=== PATIENT | male | born 1990 | race Caucasian/White ===

== ENCOUNTER 2019-07-06 11:31 | Emergency (ER) | payer BC ==
--- NOTE | 2019-07-06 11:44 | EDM.PDOC ---
ED HPI GENERAL MEDICAL PROBLEM - General Chief Complaint: Abdominal Pain Stated Complaint: ABD VILLAFANA UPPER Time Seen by Provider: 07/06/19 11:33 Source of Information: Reports: Patient History Limitations: Reports: No Limitations - History of Present Illness INITIAL COMMENTS - FREE TEXT/NARRATIVE: History of present illness: []Patient's had 3 weeks of right upper quadrant abdominal pain. He states he has family. History of gallbladder disease and is no longer have an appendix., He denies any fevers, Chills, vomiting or diarrhea. Review of systems: As per history of present illness and below otherwise all systems reviewed and negative. Past medical history: As per history of present illness and as reviewed below otherwise noncontributory. Surgical history: As per history of present illness and as reviewed below otherwise noncontributory. Social history: No reported history of drug or alcohol abuse. Family history: As per history of present illness and as reviewed below otherwise noncontributory. Physical exam: General: Well developed, well nourished in NAD HEENT: Atraumatic, normocephalic, pupils reactive, negative for conjunctival pallor or scleral icterus, mucous membranes moist, throat clear, neck supple, nontender, trachea midline. Lungs: Clear to auscultation, breath sounds equal bilaterally, chest nontender. Heart: S1S2, regular, negative for clicks, rubs, or JVD. Abdomen: NABS, Soft, nondistended, mild ruq tenderness, no rebound or guarding. Negative for masses or hepatosplenomegaly. Negative for costovertebral tenderness. Pelvis: Stable nontender. Genitourinary: Deferred. Rectal: Deferred. Extremities: Atraumatic, negative for cords or calf pain. Neurovascular unremarkable. Neuro: Awake, alert, oriented. Cranial nerves II through XII unremarkable. Cerebellum unremarkable. Motor and sensory unremarkable throughout. Exam nonfocal. Skin:warm and dry Diagnostics: CBC, chemistry, lipase, abdominal ultrasound Therapeutics: Declined pain meds ED Course: Stable Impression: Cholelithiasis without cholecystitis Prescriptions: Hyoscyamine Plan: Follow-up with general surgery as needed Definitive disposition and diagnosis as appropriate pending reevaluation and review of above. right upper quadrant Pain Score (Numeric/FACES): 7 - Related Data Allergies Allergy/AdvReac Type Severity Reaction Status Date / Time No Known Allergies Allergy Verified 07/06/19 11:46 Home Meds: Home Meds Hyoscyamine [Hyomax-SL] 0.125 mg SL Q4H PRN #20 tab.sl 07/06/19 [Rx] ED ROS GENERAL - Review of Systems Review Of Systems: See Below ED EXAM, GI/ABD - Physical Exam Exam: See Below Course - Vital Signs Last Recorded V/S: Last Vital Signs Temp 97.6 F 07/06/19 11:46 Pulse 78 07/06/19 11:46 Resp 18 07/06/19 11:46 BP 140/90 07/06/19 11:46 Pulse Ox 98 07/06/19 11:46 - Orders/Labs/Meds Orders: Active Orders 24 hr Category Date Time Status Sodium Chloride 0.9% [Saline Flush] Med 07/06/19 11:49 Active 10 ml FLUSH ASDIRECTED PRN Sodium Chloride 0.9% [Saline Flush] Med 07/06/19 11:49 Active 2.5 ml FLUSH ASDIRECTED PRN Saline Lock Insert [OM.PC] Stat Oth 07/06/19 11:49 Ordered Medication Orders Sodium Chloride (Saline Flush) 10 ml FLUSH ASDIRECTED PRN PRN Reason: Keep Vein Open Sodium Chloride (Saline Flush) 2.5 ml FLUSH ASDIRECTED PRN PRN Reason: Keep Vein Open Labs: Laboratory Tests 07/06/19 07/06/19 07/06/19 Range/Units 12:00 12:00 13:12 WBC 10.20 (4.0-11.0) K/uL RBC 5.20 (4.50-5.90) M/uL Hgb 16.4 (13.0-17.0) g/dL Hct 46.1 (38.0-50.0) % MCV 88.7 (80.0-98.0) fL MCH 31.5 (27.0-32.0) pg MCHC 35.6 (31.0-37.0) g/dL RDW Std Deviation 38.1 (28.0-62.0) fl RDW Coeff of Adelita 12 (11.0-15.0) % Plt Count 224 (150-400) K/uL MPV 11.00 (7.40-12.00) fL Neut % (Auto) 72.3 (48.0-80.0) % Lymph % (Auto) 18.1 (16.0-40.0) % Thurston % (Auto) 6.7 (0.0-15.0) % Eos % (Auto) 2.7 (0.0-7.0) % Baso % (Auto) 0.2 (0.0-1.5) % Neut # (Auto) 7.4 H (1.4-5.7) K/uL Lymph # (Auto) 1.9 (0.6-2.4) K/uL Thurston # (Auto) 0.7 (0.0-0.8) K/uL Eos # (Auto) 0.3 (0.0-0.7) K/uL Baso # (Auto) 0.0 (0.0-0.1) K/uL Nucleated RBC % 0.0 /100WBC Nucleated RBCs # 0 K/uL Sodium 143 (136-148) mmol/L Potassium 3.9 (3.5-5.1) mmol/L Chloride 106 (98-107) mmol/L Carbon Dioxide 30.9 (21.0-32.0) mmol/L BUN 16 (7.0-18.0) mg/dL Creatinine 1.0 (0.8-1.3) mg/dL Est Cr Clr Drug Dosing TNP Estimated GFR (MDRD) > 60.0 ml/min Glucose 96 (74-106) mg/dL Calcium 8.9 (8.5-10.1) mg/dL Total Bilirubin 1.1 H (0.2-1.0) mg/dL AST 17 (15-37) IU/L ALT 36 (14-63) IU/L Alkaline Phosphatase 52 (46-116) U/L Total Protein 7.6 (6.4-8.2) g/dL Albumin 4.3 (3.4-5.0) g/dL Globulin 3.3 (2.6-4.0) g/dL Albumin/Globulin Ratio 1.3 (0.9-1.6) Lipase 92 (73-393) U/L Urine Color YELLOW Urine Appearance CLEAR Urine pH 6.5 (5.0-8.0) Ur Specific [place] 1.015 (1.001-1.035) Urine Protein NEGATIVE (NEGATIVE) mg/dL Urine Glucose (UA) NEGATIVE (NEGATIVE) mg/dL Urine Ketones NEGATIVE (NEGATIVE) mg/dL Urine Occult Blood NEGATIVE (NEGATIVE) Urine Nitrite NEGATIVE (NEGATIVE) Urine Bilirubin NEGATIVE (NEGATIVE) Urine Urobilinogen 0.2 (<2.0) EU/dL Ur Leukocyte Esterase NEGATIVE (NEGATIVE) Urine RBC NONE SEEN (0-2/HPF) Urine WBC 0-1 (0-5/HPF) Ur Epithelial Cells NOT SEEN (NONE-FEW) Urine Bacteria RARE (NEGATIVE) Urine Mucus FEW (NONE-MOD) Meds: Medications Generic Name Dose Route Start Last Admin Trade Name Freq PRN Reason Stop Dose Admin Sodium Chloride 10 ml 07/06/19 11:49 Saline Flush FLUSH ASDIRECTED PRN Keep Vein Open Sodium Chloride 2.5 ml 07/06/19 11:49 Saline Flush FLUSH ASDIRECTED PRN Keep Vein Open Discontinued Medications Generic Name Dose Route Start Last Admin Trade Name Freq PRN Reason Stop Dose Admin Sodium Chloride 1,000 mls @ 999 mls/hr 07/06/19 11:50 07/06/19 12:06 Normal Saline IV 07/06/19 12:50 999 mls/hr .Bolus ONE Administration Departure - Departure Time of Disposition: 14:56 Disposition: Home, Self-Care 01 Condition: Good Clinical Impression: Cholelithiasis Qualifiers: Cholelithiasis location: gallbladder Cholecystitis presence: without cholecystitis Biliary obstruction: without biliary obstruction Qualified Code(s) : K80.20 - Calculus of gallbladder without cholecystitis without obstruction - Discharge Information *PRESCRIPTION DRUG MONITORING PROGRAM REVIEWED*: Not Applicable *COPY OF PRESCRIPTION DRUG MONITORING REPORT IN PATIENT VIKI: Not Applicable Prescriptions: Hyoscyamine [Hyomax-SL] 0.125 mg SL Q4H PRN #20 tab.sl PRN Reason: Pain Instructions: Cholelithiasis, [id number] Referrals: PCP,Not In Area [Primary Care Provider] - Forms: ED Department Discharge Additional Instructions: The following information is given to patients seen in the emergency department who are being discharged to home. This information is to outline your options for follow-up care. We provide all patients seen in our emergency department with a follow-up referral. The need for follow-up, as well as the timing and circumstances, are variable depending upon the specifics of your emergency department visit. If you don't have a primary care physician on staff, we will provide you with a referral. We always advise you to contact your personal physician following an emergency department visit to inform them of the circumstance of the visit and for follow-up with them and/or the need for any referrals to a consulting specialist. The emergency department will also refer you to a specialist when appropriate. This referral assures that you have the opportunity for follow-up care with a specialist. All of these measure are taken in an effort to provide you with optimal care, which includes your follow-up. Under all circumstances we always encourage you to contact your private physician who remains a resource for coordinating your care. When calling for follow-up care, please make the office aware that this follow-up is from your recent emergency room visit. If for any reason you are refused follow-up, please contact the [facility] Emergency Department at and asked to speak to the emergency department charge nurse. Take meds as directed, follow up with your primary care physician, return to ER if symptoms worsen or change. [facility] Specialty Care - General Surgery Professional Building [address] [place] [address], [address] [place] [address] - My Orders Last 24 Hours: My Active Orders 07/06/19 11:49 Sodium Chloride 0.9% [Saline Flush] 10 ml FLUSH ASDIRECTED PRN Sodium Chloride 0.9% [Saline Flush] 2.5 ml FLUSH ASDIRECTED PRN Saline Lock Insert [OM.PC] Stat - Assessment/Plan Last 24 Hours: My Active Orders 07/06/19 11:49 Sodium Chloride 0.9% [Saline Flush] 10 ml FLUSH ASDIRECTED PRN Sodium Chloride 0.9% [Saline Flush] 2.5 ml FLUSH ASDIRECTED PRN Saline Lock Insert [OM.PC] Stat
[2019-07-06] MEDS ORDERED: Sodium Chloride 0.9% 10 ML Syringe FLUSH PRN (11:49)
[2019-07-06] MEDS ORDERED: Sodium Chloride 0.9% 2.5 ML Syringe FLUSH PRN (11:49)
[2019-07-06] MEDS ORDERED: Sodium Chloride 0.9% 1,000 ML IV ONE (11:50)
[2019-07-06 12:57] LABS: BLOOD UREA NITROGEN,BUN 16 mg/dL (7.0-18.0); CARBON DIOXIDE,CO2 30.9 mmol/L (21.0-32.0); CHLORIDE,CL 106 mmol/L (98-107); GLUCOSE RANDOM 96 mg/dL (74-106); LIPASE 92 U/L (73-393); POTASSIUM,K 3.9 mmol/L (3.5-5.1); SODIUM,NA 143 mmol/L (136-148)
--- NOTE | 2019-07-06 14:45 | US ---
Limited abdominal ultrasound: Multiple real-time images of the upper right abdomen were obtained. Comparison: No previous abdominal imaging. Findings: Visualized portions of the pancreas are normal. Gallbladder contains shadowing gallstones. No gallbladder wall thickening or biliary duct dilatation is seen. Right kidney shows no hydronephrosis or mass. Right kidney has a length of 12.2 cm. Liver shows no focal abnormality. Impression: No abnormality is identified on right upper quadrant abdominal ultrasound. Diagnostic code #1 MTDD
== END 2019-07-06 15:00 | disposition home or self-care (01) ==
LOC: MW.ED 11:31
DX: K80.20 Calculus of gallbladder without cholecystitis without obstruction (principal)
CPT/HCPCS: 36415; 76705; 80053; 81001; 83690; 85025; 96360; 99284; J7040; 99283